=== PATIENT | male | born 1990 | race Caucasian/White ===

== ENCOUNTER 2018-08-31 12:37 | Emergency (ER) | payer OTHER ==
[2018-08-31 17:00] VITALS: BP 138/93
[2018-08-31] MEDS ORDERED: predniSONE 20 MG TABLET PO STA (17:46)
[2018-08-31] MEDS ORDERED: diazePAM 5 MG TABLET PO STA (17:46)
[2018-08-31] MEDS ORDERED: NAPROXEN 250 MG TABLET PO STA (17:46)
--- NOTE | 2018-08-31 17:49 | ED Physician Documentation ---
PD HPI BACK PAIN - Stated complaint Stated Complaint: BACK PX - Chief complaint Chief Complaint: Back Pain - Additional information Additional information: 28-year-old male presents the emergency department with complaints of lower lumbar pain which radiates into his left buttocks. The patient denies saddle anesthesia, urinary retention, lower leg weakness or numbness. The patient denies hematuria, Fevers or history of IV drug use. No recent injury or trauma. No other associated symptoms. Review of Systems Constitutional: denies: Fever Cardiac: denies: Chest pain / pressure Respiratory: denies: Cough GI: denies: Abdominal Pain : denies: Dysuria, Unable to Void, Incontinent, Hematuria Musculoskeletal: reports: Back pain. denies: Neck pain Neurologic: denies: Generalized weakness, Focal weakness, Numbness Immunocompromised: denies: Immunocompromised, Chemotherapy PD PAST MEDICAL HISTORY - Past Medical History Past Medical History: No - Past Surgical History Past Surgical History: No - Present Medications Home Medications: Ambulatory Orders Medication Instructions Recorded Confirmed Naproxen 500 mg PO BID PRN #60 tablet 08/31/18 diazePAM [Valium] 5 mg PO TID PRN #15 tablet 08/31/18 predniSONE [Prednisone] 40 mg PO DAILY #10 tablet 08/31/18 - Allergies Allergies/Adverse Reactions: Allergies Allergy/AdvReac Type Severity Reaction Status Date / Time No Known Drug Allergies Allergy Verified 08/31/18 13:52 - Social History Does the pt smoke?: Yes Smoking Status: Current every day smoker Does the pt drink ETOH?: Yes Does the pt have substance abuse?: No - Immunizations Immunizations are current?: Yes PD ED PE NORMAL - General General: Alert and oriented X 3, No acute distress - HEENT HEENT: Atraumatic, PERRL, EOMI, Ears normal - Back Back: No CVA TTP. No: No spinal TTP (The patient has no spinal tenderness, he does have tenderness in the paraspinal muscles in the lumbar region. There is no skin changes, swelling, crepitus) - Derm Derm: Normal color - Extremities Extremities: No deformity - Neuro Neuro: Alert and oriented X 3, No motor deficit, No sensory deficit, Normal speech, Other (The patient has 5/5 muscle strength in the lower extremities, normal sensation to light touch, 2/4 patellar reflex, the patient's gait is normal) - Psych Psych: Normal mood Results - Vitals Vitals: Vital Signs - 24 hr 08/31/18 08/31/18 13:48 16:53 Temperature 37 C Heart Rate 102 H 103 H Respiratory 16 16 Rate Blood Pressure 147/94 H 138/93 H O2 Saturation 98 98 Oxygen O2 Source Room air PD MEDICAL DECISION MAKING - ED course ED course: The patient appears to have acute back pain which is causing his sciatica. There is no red flags to suggest acute cauda equina or epidural abscess and currently I do not think an MRI is emergent. The patient appears appropriate for ongoing outpatient management. I discussed warning signs and recommended returning to the emergency department immediately for any worsening or any concerns Departure - Departure Disposition: Home, Self Care Clinical Impression: Lumbar back pain Condition: Good Instructions: ED Sciatica Follow-Up: SHE Rick [Provider Group] - Within 1 week (Please arrange for outpatient physical therapy. Please follow-up with primary care. You may need a outpatient MRI of your symptoms not improving) Prescriptions: diazePAM [Valium] 5 mg PO TID PRN #15 tablet PRN Reason: Spasms Naproxen 500 mg PO BID PRN #60 tablet PRN Reason: Pain predniSONE [Prednisone] 40 mg PO DAILY #10 tablet Comments: Please return to the emergency department for any worsening or any concerns
== END 2018-08-31 18:06 | disposition home or self-care (01) ==
LOC: ED 12:37
DX: M54.5 Low back pain (principal); F17.200 Nicotine dependence, unspecified, uncomplicated
CPT/HCPCS: 99283; A9270; J7512

== ENCOUNTER 2018-11-11 17:16 | Outpatient (CLI) | payer OTHER | END 2018-11-11 17:17 | disposition EMS.NT | LOC: EMS 17:16 | PROVIDERS: ATTEND Surgery | DX: R55 Syncope and collapse (principal); R56.9 Unspecified convulsions ==

== ENCOUNTER 2018-11-11 17:46 | Emergency (ER) | payer OTHER ==
--- NOTE | 2018-11-11 18:24 | ED Physician Documentation ---
PD HPI SYNCOPE - Stated complaint Stated Complaint: SYNCOPAL EPISODE - Chief complaint Chief Complaint: General - History obtained from History obtained from: Patient - History of Present Illness Witnessed: Witnessed Timing - onset: How many minutes ago (1-2) Duration: Minutes (1-2) Preceding symptoms: Light headed (He states that had a busy day today. He had not had breakfast and just a small amount to drink. He states he had not drank much through the day. He bent over to bean picker something and was in a squatting position. He got lightheaded as he stood up and felt like he might faint. He went back down on one knee for just a moment and felt slightly better and then stood up again and felt lightheaded and then felt himself falling over. He woke on the ground with some blood on his lip. People around him and states he had been out for a minute or 2. There is no seizure activity reported from the bystanders. EMS was called and the patient was brought here for evaluation. He denied any headache, chest pain, belly pain.). No: Headache, Chest pain, Abdominal pain, Nausea / vomiting Associated symptoms: No: Seizure, Headache, Chest pain, Abdominal pain Contributing factors: Decreased PO intake, Just stood up. No: Recent med change Injury occurred: Head injury (tip of tongue and jaw. Denies malocclusion of teeth nor dental injury.), Other (right anterior thigh where he fell and had a tool strapped to his leg. He was wearing a helmet.) Similar symptoms before: Has not had sx before Recently seen: Not recently seen Review of Systems Constitutional: denies: Fever, Chills, Myalgias Nose: denies: Rhinorrhea / runny nose, Congestion Throat: denies: Sore throat Cardiac: denies: Chest pain / pressure, Palpitations Respiratory: denies: Cough GI: denies: Abdominal Pain, Nausea, Vomiting, Diarrhea Skin: denies: Rash, Lesions Neurologic: reports: Syncope. denies: Focal weakness, Numbness, Seizure, Altered mental status, Headache PD PAST MEDICAL HISTORY - Past Medical History Past Medical History: No - Past Surgical History Past Surgical History: No - Present Medications Home Medications: Ambulatory Orders Medication Instructions Recorded Confirmed Naproxen 500 mg PO BID PRN #60 tablet 08/31/18 diazePAM [Valium] 5 mg PO TID PRN #15 tablet 08/31/18 predniSONE [Prednisone] 40 mg PO DAILY #10 tablet 08/31/18 - Allergies Allergies/Adverse Reactions: Allergies Allergy/AdvReac Type Severity Reaction Status Date / Time No Known Drug Allergies Allergy Verified 11/11/18 17:57 - Social History Does the pt smoke?: Yes Smoking Status: Current every day smoker Does the pt drink ETOH?: Yes Does the pt have substance abuse?: No - Immunizations Immunizations are current?: Yes PD ED PE NORMAL - Vitals Vital signs reviewed: Yes - General General: Alert and oriented X 3, No acute distress, Well developed/nourished - HEENT HEENT: Dentition benign, Other (Has a contusion with some ecchymosis in the tip of the tongue. There is no laceration. There is no lesions on the side of the tongue. He is tender on the underside of the chin without any laceration. He has good occlusion of the teeth and denies any dental injury.) - Neck Neck: Supple, no meningeal sign, No bony TTP, No adenopathy - Cardiac Cardiac: RRR, No murmur - Respiratory Respiratory: Clear bilaterally - Abdomen Abdomen: Soft, Non tender - Derm Derm: Normal color, Warm and dry - Extremities Extremities: No deformity, Other (He has some tenderness in the right anterolateral mid thigh where he had fallen and had a tool strap to his leg. There is good full extension of the leg. There is good range of motion of the hip and knee without any pains.) - Neuro Neuro: Alert and oriented X 3, audio/visual manager 2-12 intact, No motor deficit, No sensory deficit, Normal speech Eye Opening: Spontaneous Motor: Obeys Commands Verbal: Oriented GCS Score: 15 - Psych Psych: Normal mood, Normal affect Results - Vitals Vitals: Vital Signs - 24 hr 11/11/18 11/11/18 17:55 19:20 Temperature 36.7 C Heart Rate 87 72 Respiratory 14 16 Rate Blood Pressure 125/104 H 129/90 H O2 Saturation 100 99 Oxygen O2 Source Room air - Labs Labs: Laboratory Tests 11/11/18 11/11/18 17:50 19:22 Sodium 135 Potassium 4.1 Chloride 100 L Carbon Dioxide 24 Anion Gap 11.0 BUN 12 Creatinine 0.8 Estimated GFR (MDRD) 114 Glucose 117 H POC Whole Bld Glucose 186 H Calcium 9.2 Total Bilirubin 0.9 AST 44 H ALT 42 Alkaline Phosphatase 40 L Total Protein 8.0 Albumin 4.8 Globulin 3.2 Albumin/Globulin Ratio 1.5 Lipase 51 Ethyl Alcohol < 5.0 Departure - Departure Disposition: 01 Home, Self Care Clinical Impression: Postural syncope Condition: Stable Record reviewed to determine appropriate education?: Yes Instructions: ED Syncope Vasovagal Follow-Up: Macy Reyes MD [Primary Care Provider] - Comments: Stay well-hydrated. Normal activity resuming tomorrow. Discharge Date/Time: 11/11/18 19:59
[2018-11-11] MEDS ORDERED: SODIUM CHLORIDE 0.9% 1,000 ML IV ONE (19:13)
[2018-11-11 19:20] VITALS: BP 129/90
[2018-11-11 19:40] LABS: ALBUMIN 4.8 g/dL (3.2-5.5); ALBUMIN/GLOBULIN RATIO 1.5 (1.0-2.2); ALKALINE PHOSPHATASE 40 IU/L (42-121); ALT ALANINE AMINOTRANSFERASE 42 IU/L (10-60); AST ASPARTATE AMINOTRANSFERASE 44 IU/L (10-42); BILIRUBIN,TOTAL 0.9 mg/dL (0.2-1.0); BUN - BLOOD UREA NITROGEN 12 mg/dL (6-20); CALCIUM 9.2 mg/dL (8.5-10.3); CARBON DIOXIDE - CO2 24 mmol/L (21-32); CHLORIDE 100 mmol/L (101-111); CREATININE 0.8 mg/dL (0.6-1.2); GFR - MDRD 114 (>89); GLUCOSE 117 mg/dL (70-100); LIPASE 51 U/L (22-51); SODIUM 135 mmol/L (135-145)
== END 2018-11-11 19:59 | disposition home or self-care (01) ==
LOC: ED 17:46
DX: R55 Syncope and collapse (principal); S00.532A Contusion of oral cavity, initial encounter; M79.651 Pain in right thigh; W18.30XA Fall on same level, unspecified, initial encounter; Y99.0 Civilian activity done for income or pay; F17.200 Nicotine dependence, unspecified, uncomplicated
CPT/HCPCS: 36415; 80053; 80320; 83690; 93005; 99283

== ENCOUNTER 2019-08-06 13:37 | Outpatient (CLI) | payer OTHER | END 2019-08-06 13:38 | disposition critical access hospital (66) | LOC: EMS 13:37 | PROVIDERS: ATTEND Surgery | DX: R11.2 Nausea with vomiting, unspecified (principal); R10.9 Unspecified abdominal pain; M54.2 Cervicalgia | CPT/HCPCS: A0425; A0427 ==

== ENCOUNTER 2019-08-06 13:48 | Emergency (ER) | payer OTHER ==
[2019-08-06] MEDS ORDERED: SODIUM CHLORIDE 0.9% 1,000 ML IV STA (13:59)
[2019-08-06 14:13] LABS: BASOPHILS % (AUTO) 0.2 %; HGB - HEMOGLOBIN 16.1 g/dL (14.0-18.0); LYMPHOCYTES # (AUTO) 0.2 10^3/uL (1.5-3.5); MEAN CORPUSCULAR HEMOGLOBIN 31.2 pg (27.0-31.0); MEAN CORPUSCULAR HGB CONC 33.5 g/dL (32.0-36.0); MEAN CORPUSCULAR VOLUME 93.2 fL (80.0-94.0); MONOCYTES # (AUTO) 1.1 10^3/uL (0.0-1.0); MONOCYTES % (AUTO) 9.1 %; NEUTROPHILS # (AUTO) 10.7 10^3/uL (1.5-6.6); NEUTROPHILS % (AUTO) 88.3 %; PLT - PLATELET COUNT 289 10^3/uL (130-450); RED BLOOD COUNT 5.16 10^6/uL (4.70-6.10); RED CELL DISTRIBUTION WIDTH 13.5 % (12.0-15.0); WHITE BLOOD COUNT 12.2 x10^3/uL (4.8-10.8)
[2019-08-06] MEDS ORDERED: ONDANSETRON 4 MG/2 ML VIAL IVP STA (14:20)
[2019-08-06] MEDS ORDERED: SODIUM CHLORIDE 0.9% 1,000 ML IV ONE (14:20)
[2019-08-06] MEDS ORDERED: PANTOPRAZOLE 40 MG VIAL IVP STA (14:20)
[2019-08-06 14:26] LABS: ALBUMIN 6.1 g/dL (3.2-5.5); ALBUMIN/GLOBULIN RATIO 1.5 (1.0-2.2); BILIRUBIN,TOTAL 2.5 mg/dL (0.2-1.0); CALCIUM 9.7 mg/dL (8.5-10.3); TOTAL PROTEIN 10.2 g/dL (6.7-8.2)
[2019-08-06 14:27] LABS: RBC MORPHOLOGY (MULTIPLE) 1+ ANISOCYTOSIS (NORMAL)
[2019-08-06] MEDS ORDERED: LACTATED RINGERS 1,000 ML IV STA ×2 (14:32)
[2019-08-06] MEDS ORDERED: PROMETHAZINE INJ 25 MG in SODIUM CHLORIDE 0.9% 50 ML IV STA (14:33)
--- NOTE | 2019-08-06 14:36 | ED Physician Documentation ---
PD HPI NVD - Stated complaint Stated Complaint: N/V ABD PAIN - Chief complaint Chief Complaint: Abd Pain - History obtained from History obtained from: Patient, Family, EMS - History of Present Illness Timing - onset: How many days ago (2) Timing - duration: Days (2) Timing - details: Gradual onset Pain level max: 5 Pain level now: 4 Associated symptoms: Abdominal pain (States burning epigastric pain), Hematemesis (Coffee-ground emesis). No: Fever, Hematochezia, Dizzy, Near syncope / syncope, Loss of appetite, Weight loss Contributing factors: Alcohol use (Drinks approximately 1/5 of alcohol per day) Improved by: Vomiting Worsened by: Eating Similar symptoms before: Has not had sx before Recently seen: Not recently seen Review of Systems Ten Systems: 10 systems reviewed and negative Constitutional: denies: Fever, Chills Cardiac: denies: Chest pain / pressure Respiratory: denies: Cough GI: reports: Nausea, Vomiting. denies: Abdominal Pain, Diarrhea Skin: denies: Rash Musculoskeletal: denies: Neck pain, Back pain Neurologic: denies: Headache PD PAST MEDICAL HISTORY - Past Medical History Past Medical History: No - Past Surgical History Past Surgical History: No - Present Medications Home Medications: Ambulatory Orders Medication Instructions Recorded Confirmed No Known Home Medications 08/06/19 08/06/19 - Allergies Allergies/Adverse Reactions: Allergies Allergy/AdvReac Type Severity Reaction Status Date / Time No Known Drug Allergies Allergy Verified 08/06/19 14:10 - Living Situation Living Situation: reports: With family Living Arrangement: reports: At home - Social History Does the pt smoke?: Yes Smoking Status: Current every day smoker Does the pt drink ETOH?: Yes ETOH Use: Beer, Liquor Does the pt have substance abuse?: No - Family History Family history: reports: Non contributory - Immunizations Immunizations are current?: Yes PD ED PE NORMAL - Vitals Vital signs reviewed: Yes - General General: Alert and oriented X 3, No acute distress, Well developed/nourished - HEENT HEENT: PERRL, Ears normal, Moist mucous membranes, Other (Subcutaneous emphysema present to the mandible bilaterally.) - Neck Neck: Supple, no meningeal sign - Cardiac Cardiac: RRR, Strong equal pulses - Respiratory Respiratory: No respiratory distress, Clear bilaterally - Abdomen Abdomen: Soft, Non tender, Non distended - Derm Derm: Warm and dry, No rash - Extremities Extremities: No edema - Neuro Neuro: Alert and oriented X 3 - Psych Psych: Normal mood, Normal affect Results - Vitals Vitals: Vital Signs - 24 hr 08/06/19 08/06/19 08/06/19 14:07 14:10 14:40 Temperature 36.8 C Heart Rate 115 H 112 H 120 H Respiratory 26 H 28 H 20 Rate Blood Pressure 142/98 H 149/99 H 145/91 H O2 Saturation 99 98 98 08/06/19 08/06/19 08/06/19 15:10 16:00 17:00 Temperature 38.1 C H 37.3 C Heart Rate 121 H 112 H 112 H Respiratory 24 24 18 Rate Blood Pressure 119/82 H 136/84 H 139/87 H O2 Saturation 100 99 97 08/06/19 08/06/19 08/06/19 17:30 18:00 19:22 Temperature 36.8 C Heart Rate 111 H 104 H 123 H Respiratory 22 18 16 Rate Blood Pressure 133/78 H 135/76 H 138/79 H O2 Saturation 98 99 100 Oxygen O2 Source Room air - Labs Labs: Laboratory Tests 08/06/19 08/06/19 08/06/19 14:05 14:05 14:05 WBC 12.2 H RBC 5.16 Hgb 16.1 Hct 48.1 MCV 93.2 MCH 31.2 H MCHC 33.5 RDW 13.5 Plt Count 289 MPV 9.0 Neut # (Auto) 10.7 H Lymph # (Auto) 0.2 L [place] # (Auto) 1.1 H Eos # (Auto) 0.0 Baso # (Auto) 0.0 Absolute Nucleated RBC 0.00 Nucleated RBC % 0.0 Manual Slide Review Indicated RBC Morph Micro Appear 1+ ANISOCYTOSIS PT INR APTT VBG pH VBG pCO2 VBG pO2 VBG HCO3 VBG Total CO2 VBG O2 Saturation VBG Base Excess Sodium 136 Potassium 4.9 Chloride 89 L Carbon Dioxide 13 L Anion Gap 34.0 H BUN 21 H Creatinine 2.0 H Estimated GFR (MDRD) 39 L Glucose 182 H Lactic Acid Calcium 9.7 Phosphorus Magnesium Total Bilirubin 2.5 H AST 66 H ALT 109 H Alkaline Phosphatase 50 Total Protein 10.2 H Albumin 6.1 H Globulin 4.1 Albumin/Globulin Ratio 1.5 Lipase 204 H Salicylates Acetaminophen Ethyl Alcohol < 5.0 Blood Type Antibody Screen 08/06/19 08/06/19 08/06/19 14:05 14:20 14:56 WBC RBC Hgb Hct MCV MCH MCHC RDW Plt Count MPV Neut # (Auto) Lymph # (Auto) Catahoula # (Auto) Eos # (Auto) Baso # (Auto) Absolute Nucleated RBC Nucleated RBC % Manual Slide Review RBC Morph Micro Appear PT 12.1 INR 1.1 APTT 29.6 VBG pH VBG pCO2 VBG pO2 VBG HCO3 VBG Total CO2 VBG O2 Saturation VBG Base Excess Sodium Potassium Chloride Carbon Dioxide Anion Gap BUN Creatinine Estimated GFR (MDRD) Glucose Lactic Acid 2.5 H Calcium Phosphorus Magnesium Total Bilirubin AST ALT Alkaline Phosphatase Total Protein Albumin Globulin Albumin/Globulin Ratio Lipase Salicylates Acetaminophen Ethyl Alcohol Blood Type A NEGATIVE Antibody Screen NEGATIVE 08/06/19 08/06/19 08/06/19 14:56 14:56 15:00 WBC RBC Hgb Hct MCV MCH MCHC RDW Plt Count MPV Neut # (Auto) Lymph # (Auto) Catahoula # (Auto) Eos # (Auto) Baso # (Auto) Absolute Nucleated RBC Nucleated RBC % Manual Slide Review RBC Morph Micro Appear PT INR APTT VBG pH 7.217 L VBG pCO2 26.1 L VBG pO2 49.6 H VBG HCO3 10.4 L VBG Total CO2 11.2 L VBG O2 Saturation 82.5 H VBG Base Excess -15.5 L Sodium Potassium Chloride Carbon Dioxide Anion Gap BUN Creatinine Estimated GFR (MDRD) Glucose Lactic Acid Calcium Phosphorus 5.5 H Magnesium 2.5 Total Bilirubin AST ALT Alkaline Phosphatase Total Protein Albumin Globulin Albumin/Globulin Ratio Lipase Salicylates < 6.0 Acetaminophen < 10 L Ethyl Alcohol Blood Type Antibody Screen - Rads (name of study) CT abd/pelvis Radiology: Prelim report reviewed, EMP read contemporaneously, See rad report (1. Normal appendix. Diverticulosis. No inflammation or obstruction. 2. Pneumomediastinum and chest wall subcutaneous emphysema. Correlate with history to evaluate for etiology. If the patient has thoracic or lung symptomatology, recommend dedicated chest CT with oral/IV contrast. 3. Fatty liver. ) CT chest Radiology: Prelim report reviewed, EMP read contemporaneously, See rad report (1. No extraluminal contrast is noted in the mediastinum concerning for esophageal perforation. Mild esophageal wall thickening is noted throughout the thoracic esophagus. No obvious mass. 2. Extensive pneumomediastinum. Pneumope ricardium is also present. 3. See separate CT abdomen and pelvis report. ) PD MEDICAL DECISION MAKING - ED course Complexity details: reviewed results, re-evaluated patient, considered differential, d/w patient, d/w family, d/w admissions consultant ED course: 29-year-old male with alcoholism, significant metabolic acidosis, dehydration, acute renal failure, hematemesis. Given Protonix and IV fluids. He did develop a fever and was given vancomycin and Zosyn for this. He also has significant pneumomediastinum and pericardium with subcutaneous emphysema. No obvious esophageal rupture. Discussed the case with Dr. Duvall, hospitalist and Dr. Daly, general surgery who recommends transfer to a facility with c ardiothoracic surgery. Contacted [facility] in [place], no beds available. Contacted [facility] in [place], spoke with the hospitalist there who requested that I speak with the CT surgeon. I spoke with the cardiothoracic surgeon who states that they do not do any esophageal repairs there. He recommends transfer to the [facility] or [facility]. Contacted [facility] and spoke with Dr. Danay Rodriguez at 1900 who recommends an esophagram. This is unable to be performed here. Therefore patient will be transferred to the emergency department at [facility]. If he is found to have a significant rupture or perforation he will be admitted to cardiothoracic surgery, otherwise he will be treated by medicine for his significant electrolyte abnormalities and dehydration as well as alcohol withdrawal.COBRA forms completed. Patient transferred to the [facility] emergency department. This document was made in part using voice recognition software. While efforts are made to proofread this document, sound alike and grammatical errors may occur. Departure - Departure Disposition: 02 Transfer Acute Care Hosp Clinical Impression: Pneumomediastinum, Metabolic acidosis, Alcoholism Vomiting Qualifiers: Vomiting type: unspecified Vomiting Intractability: unspecified Nausea presence: unspecified Qualified Code(s): R11.10 - Vomiting, unspecified Condition: Stable
[2019-08-06 14:51] LABS: INR 1.1 (0.8-1.2); PT - PROTHROMBIN TIME 12.1 secs (9.9-12.6)
[2019-08-06] MEDS ORDERED: LORazepam 2 MG/ML VIAL IVP STA (14:54)
[2019-08-06 14:58] LABS: PARTIAL THROMBOPLASTIN TIME 29.6 secs (24.9-33.3)
[2019-08-06 15:03] LABS: VBG PCO2 26.1 mmHg (41-51); VBG PH 7.217 (7.31-7.41)
[2019-08-06 15:04] LABS: VBG BASE EXCESS -15.5 mmol/L (-2 - +2); VBG PO2 49.6 mmHg (25-47); VBG TOTAL CO2 11.2 mmol/L (24-29)
[2019-08-06 15:19] LABS: MAGNESIUM 2.5 mg/dL (1.7-2.8); PHOSPHORUS 5.5 mg/dL (2.5-4.6)
--- NOTE | 2019-08-06 15:23 | CT Report ---
Reason: abd pain, vomiting Procedure Date: 08/06/2019 Accession Number: [id number] / [id number] Procedure: CT - Abdomen/Pelvis WO CPT Code: Final Report FULL RESULT: EXAM: CT ABDOMEN AND PELVIS (CT KUB) EXAM DATE: 08/06/2019 02:47 PM. CLINICAL HISTORY: Abdominal pain, vomiting. COMPARISONS: None. TECHNIQUE: Routine axial helical CT imaging was performed through the abdomen and pelvis without IV contrast. Reconstructions: Coronal and sagittal. In accordance with CT protocol optimization, one or more of the following dose reduction techniques were utilized for this exam: automated exposure control, adjustment of mA and/or KV based on patient size, or use of iterative reconstructive technique. FINDINGS: Lung Bases: Pneumomediastinum surrounds the lower thoracic esophagus and thoracic aorta. Small component of pneumopericardium is not excluded. Additional areas of pneumomediastinum are noted anterior to the heart at the base on image 3,5. Lungs are otherwise clear. Extensive subcutaneous soft tissue emphysema is noted in the right lower chest wall and mid and upper abdomen. Additional left lower chest wall subcutaneous emphysema is noted. Right Kidney/Ureter: No stones, hydronephrosis, or hydroureter. No perinephric fat stranding. Left Kidney/Ureter: No stones, hydronephrosis, or hydroureter. No perinephric fat stranding. Other Solid Organs: Fatty liver. No mass or intrahepatic bile duct dilation noted on this noncontrast enhanced CT. Mild liver enlargement. Normal adrenal glands, pancreas and spleen. Gallbladder/Bile Ducts: Unremarkable. Peritoneal Cavity: No free fluid, free air or yolande adenopathy. Bowel is grossly unremarkable. There are multiple diverticula seen which most severely affect the sigmoid colon. No wall thickening or adjacent inflammation seen. No obstruction noted. The appendix is well visualized and normal. Remaining stomach, small bowel and large bowel are normal. Paraspinal/retroperitoneal emphysema is noted in the mid to upper abdomen. Pelvic Organs: No bladder stones or wall thickening. Noncontrast images of the visualized pelvic organs are unremarkable. Vasculature: Unremarkable. Other: None. IMPRESSION: 1. Normal appendix. Diverticulosis. No inflammation or obstruction. 2. Pneumomediastinum and chest wall subcutaneous emphysema. Correlate with history to evaluate for etiology. If the patient has thoracic or lung symptomatology, recommend dedicated chest CT with oral/IV contrast. 3. Fatty liver. [facility] The call report notification system was initiated by Dr. Stacey Mckinney at 03:23 PM on 08/06/2019. The above call report findings were discussed with Riley Ramírez by Dr. Stacey Mckinney at 03:28 PM on 08/06/2019.
[2019-08-06 15:28] LABS: ACETAMINOPHEN < 10 ug/mL (10-30); SALICYLATE < 6.0 mg/dL
[2019-08-06] MEDS ORDERED: IOVERSOL 320 50 ML VIAL ONE (15:47)
[2019-08-06] MEDS ORDERED: HYDROmorphone 1 MG/ML CARPUJECT IVP STA ×2 (16:13→20:11)
--- NOTE | 2019-08-06 16:44 | CT Report ---
Reason: chest pain, vomiting. Procedure Date: 08/06/2019 Accession Number: [id number] / [id number] Procedure: CT - CHEST WO CPT Code: Final Report FULL RESULT: EXAM: CT CHEST EXAM DATE: 08/06/2019 03:52 PM. CLINICAL HISTORY: Chest pain, vomiting. COMPARISONS: None. TECHNIQUE: Routine helical CT imaging was performed through the chest. IV contrast: None. Reconstructions: Coronal and sagittal. Patient received oral contrast prior to imaging. In accordance with CT protocol optimization, one or more of the following dose reduction techniques were utilized for this exam: automated exposure control, adjustment of mA and/or KV based on patient size, or use of iterative reconstructive technique. FINDINGS: Lungs/Pleura: No nodules, bronchial thickening, consolidation, or edema. Pulmonary vasculature is normal. No pericardial or pleural effusion. No pneumothorax. Mediastinum: No cardiac enlargement. The esophagus demonstrates mild wall thickening without a focal mass. Extensive pneumomediastinum is present throughout the chest and extending into the lower neck. Component of pneumopericardium is noted anteriorly. In addition, extrapleural air is present posteriorly in both hemithoraces. No definite pneumothorax is seen. No pathologic lymphadenopathy or pericardial effusion. No extraluminal contrast is noted in the mediastinum. Bones: Unremarkable. Visualized Abdomen: Unremarkable. Other: Homogeneous enhancement of the thyroid gland. No thyroid nodule or mass. No supraclavicular or axillary lymphadenopathy identified. Extensive soft tissue emphysema is noted throughout the neck bilaterally. In addition, extensive chest wall subcutaneous emphysema is noted, worse on the right than on the left. Retroperitoneal and paraspinal soft tissue emphysema is noted in the upper abdomen. IMPRESSION: 1. No extraluminal contrast is noted in the mediastinum concerning for esophageal perforation. Mild esophageal wall thickening is noted throughout the thoracic esophagus. No obvious mass. 2. Extensive pneumomediastinum. Pneumopericardium is also present. 3. See separate CT abdomen and pelvis report. [facility]
[2019-08-06] MEDS ORDERED: PIPERACILLIN/TAZOBACTAM 4.5 GM in SODIUM CHLORIDE 0.9% MINIBAG 100 ML IV STA (17:07)
[2019-08-06] MEDS ORDERED: VANCOMYCIN INJ 1 GM in SODIUM CHLORIDE 0.9% 500 ML IV STA (17:07)
[2019-08-06 19:27] LABS: GLUCOSE, URINE (UA) NEGATIVE (NEGATIVE); KETONES,URINE (UA) >=80 mg/dL (NEGATIVE); LEUKOCYTE ESTERASE, URINE NEGATIVE (NEGATIVE); NITRITE,URINE NEGATIVE (NEGATIVE); OCCULT BLOOD,URINE MODERATE (NEGATIVE); PROTEIN,URINE 100 mg/dL (NEGATIVE); UROBILINOGEN,URINE 0.2 (NORMAL) E.U./dL (NORMAL)
[2019-08-06 19:35] LABS: BILIRUBIN,URINE NEGATIVE (NEGATIVE); CLARITY,URINE CLEAR (CLEAR); ICTOTEST,URINE NEGATIVE
[2019-08-06 19:36] LABS: BACTERIA,URINE None Seen /HPF (None Seen); RBC,URINE 0-5 /HPF (0-5); SQUAMOUS EPITHELIAL CELL,UR NONE SEEN (<= Few)
[2019-08-06 19:37] LABS: CASTS, URINE 11-25 Hyaline Casts /LPF
[2019-08-06 20:12] VITALS: BP 138/89
== END 2019-08-06 20:15 | disposition short-term general hospital (02) ==
LOC: EDUNIT# → ED 13:48
DX: J98.2 Interstitial emphysema (principal); E87.2 Acidosis; F10.20 Alcohol dependence, uncomplicated; R11.2 Nausea with vomiting, unspecified; E86.0 Dehydration; N17.9 Acute kidney failure, unspecified; K92.0 Hematemesis; R50.9 Fever, unspecified
CPT/HCPCS: 36415; 71250; 74176; 80053; 80320; 80329; 81001; 82803; 83605; 83690; 83735; 84100; 85025; 85610; 85730; 86850; 86900; 86901; 87040; 96361; 96365; 96366; 96367; 96375; 96376; 99285; J1170; J2060; J3370; J7040; J7120; 80307; 81003; 87086

== ENCOUNTER 2019-08-06 20:19 | Outpatient (CLI) | payer OTHER | END 2019-08-06 20:20 | disposition short-term general hospital (02) | LOC: EMS 20:19 | PROVIDERS: ATTEND Surgery | DX: J98.2 Interstitial emphysema (principal); K92.0 Hematemesis | CPT/HCPCS: A0425; A0426 ==